=== PATIENT | female | born 1965 | race Caucasian/White ===

== ENCOUNTER → 2019-07-25 08:44 | Outpatient (CLI) | payer OTHER, SELFPAY | DX: Z23 Encounter for immunization (principal) | CPT/HCPCS: 90471; 90686 ==

== ENCOUNTER → 2021-07-27 09:25 | Outpatient (CLI) | payer OTHER, SELFPAY ==
--- NOTE | 2021-07-27 | DI.MRI.S_ITS ---
PROCEDURE: MR ANKLE RT WO/W CON INDICATIONS: Pain in right ankle and joints of right foot TECHNIQUE: Noncontrast sagittal T1 spin echo and T2 fast spin echo with fat saturation, axial proton density fast spin echo and T2 fast spin echo with fat saturation, axial T1 spin echo with fat saturation, coronal T1 spin echo and T2 fast spin echo with fat saturation through the ankle/hindfoot. Post-contrast axial, coronal, and sagittal T1 spin echo with fat saturation through the ankle/hindfoot. COMPARISON: None. FINDINGS: Bones and joints: Bones: No marrow contusions or fractures. Chronic appearing fracture deformity of the lateral malleolus. Scattered degenerative subchondral sclerosis and spurring. Coalitions: No definite hindfoot coalitions although there are prominent diffuse degenerative subchondral signal changes at the subtalar joint, likely degenerative. This raises the possibility of non osseous coalition, however technically indeterminate. Severe tibiotalar joint degeneration is also noted with diffuse partial-thickness chondral loss. Subchondral marrow edema within the lateral talar dome is probably reactive to joint degeneration rather than osteochondral lesion of talus. Other: Trace tibiotalar joint effusion. Medial structures: Posterior tibialis: Mild distal tendinopathy. There is mild to moderate tenosynovitis. Flexor digitorum longus: Intact. [id number] tenosynovitis. Flexor hallucis longus: Intact. Posterior tibial neurovascular bundle: Normal. Deltoid ligament complex: Intact. Spring ligament: Intact. Lateral structures: Anterior talofibular ligament: Not well seen presumably ruptured, chronic. Calcaneofibular ligament: Not well seen also presumably ruptured. Posterior talofibular ligament: Intact. Anterior tibiofibular ligament: Intact. Posterior tibiofibular ligament: Intact. Intermalleolar ligament: Intact. Tibiofibular syndesmosis: Normal. Peroneus longus: Distal tendinopathy and interstitial tearing at about the level of the calcaneocuboid joint. There is diffuse tenosynovitis. Peroneus brevis: Mild tendinopathy and tenosynovitis. Bony peroneal tubercle and retrotrochlear prominence: Normal. Sinus tarsi: Mild edema/T2 hyperintensity and slight partial loss of the normal fat signal intensity. This is probably reactive to subtalar joint degeneration although recommend clinical correlation to exclude sinus tarsi syndrome. Anterior structures: Tibialis anterior: Intact. Extensor hallucis longus: Intact. Extensor digitorum longus: Intact. Dorsal talonavicular ligament: Intact. Posterior and plantar structures: Achilles tendon: Intact. Plantar fascia: Mild medial band plantar fasciitis. Muscles: No abductor digiti quinti muscle atrophy to suggest Joseph neuropathy. 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 This could be secondary to prior trauma (favored) or occult non osseous coalition. 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 Mild medial band plantar fasciitis. Mild to moderate posterior tibialis and flexor digitorum longus tenosynovitis. Peroneus longus tendinopathy and interstitial tearing. Peroneus brevis tendinopathy and tenosynovitis, mild. Dictated by: Raoul Mendoza M.D. on 07/27/2021 at 10:50 Approved by: Raoul Mendoza M.D. on 07/27/2021 at 11:13
== END ==
PROVIDERS: Referring Provider Podiatrist; Visit Provider Podiatrist
DX: M25.371 Other instability, right ankle (principal); M25.771 Osteophyte, right ankle; M25.571 Pain in right ankle and joints of right foot; M19.071 Primary osteoarthritis, right ankle and foot; S93.411A Sprain of calcaneofibular ligament of right ankle, initial encounter; S93.491A Sprain of other ligament of right ankle, initial encounter; M65.871 Other synovitis and tenosynovitis, right ankle and foot; S96.811A Strain of other specified muscles and tendons at ankle and foot level, right foot, initial encounter; M72.2 Plantar fascial fibromatosis
CPT/HCPCS: 73723